=== PATIENT | female | born 1965 | race Hispanic/Latino ===

== ENCOUNTER 2018-01-23 16:18 | Outpatient (CLI) | payer OTHER ==
--- NOTE | 2018-01-23 18:01 | XRay Report ---
FINAL REPORT EXAM: XR SPINE LUMBOSACRAL 2-3V HISTORY: LUMBAGO W/ SCIATICA, RIGHT SIDE TECHNIQUE: Lumbar spine five views PRIORS: None. FINDINGS: Vertebral bodies demonstrate normal height and alignment. . There is hypertrophic facet joint arthropathy from L2-L3 through L5-S1. This results in minimal grade 1 anterolisthesis of L4 relative to L5. There is disc space narrowing at L4-5 and L5-S1. Transverse and spinous processes are intact SI joints are unremarkable. IMPRESSION: Facet joint arthropathy in from L2-L3 through L5-S1 Mild grade 1 spondylolisthesis at L4-5 Degenerative disc space narrowing L4-5 and L5-S1
== END 2018-01-23 16:19 | disposition home or self-care (01) ==
LOC: XRAY 16:18
PROVIDERS: ATTEND Internal Medicine
DX: Z02.71 Encounter for disability determination (principal); M54.41 Lumbago with sciatica, right side; M12.88 Other specific arthropathies, not elsewhere classified, other specified site; M43.16 Spondylolisthesis, lumbar region
CPT/HCPCS: 72100